=== PATIENT | female | born 1940 | race Caucasian/White ===

== ENCOUNTER 2023-08-27 09:10 | Emergency (ER) | payer MEDICARE ==
[~2023-08-27] VITALS: Ht 160 cm; Wt 74.0 kg
[2023-08-27 10:05] VITALS: BP 127/62; PULSE 91; RESP 17; TEMP 98.5; O2SAT 97
[2023-08-27] MEDS: HYDROcodone-ACET 5/325MG TAB PO ONE (10:12)
[2023-08-27] MEDS ORDERED: TRAM50TA2 PO (10:51)
== END 2023-08-27 11:07 | disposition home or self-care (01) ==
LOC: ER 09:10
DX: M51.16 Intervertebral disc disorders with radiculopathy, lumbar region (principal); I10 Essential (primary) hypertension; Z79.899 Other long term (current) drug therapy
CPT/HCPCS: 72131